=== PATIENT | male | born 1965 | race Caucasian/White ===

== ENCOUNTER 2024-09-02 21:17 | Emergency (ER) | payer OTHER ==
[~2024-09-02] VITALS: Ht 180.3 cm; Wt 63.5 kg
[2024-09-02] MEDS ORDERED: ACETAMINOPHEN ES 500 MG TABLET ONE (23:33)
[2024-09-02] MEDS: ACETAMINOPHEN ES 500 MG TABLET PO ONE (23:35)
[2024-09-03] MEDS ORDERED: ONDA4TAB5 PO (00:11)
[2024-09-03] MEDS ORDERED: HYDR-4209 PO (00:11)
[2024-09-03] MEDS ORDERED: oxyCODONE/APAP (5/325 MG) 1 UDTAB TABLET ONE (00:16)
[2024-09-03] MEDS: oxyCODONE/APAP (5/325 MG) 1 UDTAB TABLET PO ONE (00:18)
[2024-09-03 01:12] VITALS: BP 135/77; TEMP 98; O2SAT 99
== END 2024-09-03 01:12 | disposition home or self-care (01) ==
LOC: ER 21:21
DX: S93.402A Sprain of unspecified ligament of left ankle, initial encounter (principal); F17.290 Nicotine dependence, other tobacco product, uncomplicated; X50.1XXA Overexertion from prolonged static or awkward postures, initial encounter; Y93.51 Activity, roller skating (inline) and skateboarding; Y92.89 Other specified places as the place of occurrence of the external cause; Y99.8 Other external cause status
CPT/HCPCS: 73610-TC